=== PATIENT | male | born 1960 | race Caucasian/White ===

== ENCOUNTER 2020-10-09 10:59 | Emergency (ER) | payer OTHER, BC ==
[~2020-10-09] VITALS: Ht 182.9 cm; Wt 250.0 kg
[2020-10-09] MEDS ORDERED: LISINOPRIL5 MG PO (13:06)
[2020-10-09] MEDS ORDERED: GLIPIZIDE5 MG PO (13:07)
[2020-10-09] MEDS ORDERED: CRESTOR5 M1 PO (13:07)
[2020-10-09 14:17] VITALS: BP 150/97
== END 2020-10-09 14:29 | disposition home or self-care (01) | DRG 125 ==
LOC: ED 10:59
PROC: 0HQ1XZZ Repair Face Skin, External Approach (ICD-10-PCS; principal; 2020-10-09)
DX: S01.112A Laceration without foreign body of left eyelid and periocular area, initial encounter (principal); S20.212A Contusion of left front wall of thorax, initial encounter; E11.9 Type 2 diabetes mellitus without complications; W13.2XXA Fall from, out of or through roof, initial encounter; Y93.H3 Activity, building and construction; Y92.009 Unspecified place in unspecified non-institutional (private) residence as the place of occurrence of the external cause; Y99.0 Civilian activity done for income or pay; Z79.84 Long term (current) use of oral hypoglycemic drugs